=== PATIENT | male | born 1990 | race Caucasian/White ===

== ENCOUNTER 2017-11-09 08:57 | Outpatient (CLI) | payer BC | END 2017-11-09 08:58 | disposition home or self-care (01) | LOC: DTY/OP 08:57 | PROVIDERS: ATTEND Surgery | DX: E66.01 Morbid (severe) obesity due to excess calories (principal) | CPT/HCPCS: 97802 ==

== ENCOUNTER 2019-03-05 12:24 | Outpatient (CLI) | payer BC ==
--- NOTE | 2019-03-06 23:24 | EKG ---
Test Reason : Blood Pressure : / mmHG Vent. Rate : 081 BPM Atrial Rate : 081 BPM P-R Int : 156 ms QRS Dur : 098 ms QT Int : 382 ms P-R-T Axes : 045 -06 016 degrees QTc Int : 443 ms Normal sinus rhythm Minimal voltage criteria for LVH, may be normal variant Borderline ECG No previous ECGs available Confirmed by [place] REMY ([id number]) on 03/06/2019 11:23:57 PM Referred By: JOLIE Confirmed By:hCico REMY
== END 2019-03-05 12:25 | disposition home or self-care (01) ==
LOC: EKG 12:24
PROVIDERS: ATTEND Specialist
DX: E66.01 Morbid (severe) obesity due to excess calories (principal)
CPT/HCPCS: 36415; 82306; 82607; 82728; 82746; 83540; 83970; 84425; 84436; 84480; 85025; 93005; 93010

== ENCOUNTER 2019-03-12 08:22 | Outpatient (CLI) | payer BC | END 2019-03-12 08:23 | disposition home or self-care (01) | LOC: DTY/OP 08:22 | PROVIDERS: ATTEND Specialist | DX: Z01.818 Encounter for other preprocedural examination (principal); E66.01 Morbid (severe) obesity due to excess calories | CPT/HCPCS: 97802 ==

== ENCOUNTER 2019-04-18 11:00 | Inpatient (IN) | payer BC ==
[2019-07-07 11:43] VITALS: BMI 42.1
[2019-07-08] MEDS ORDERED: Ketorolac Tromethamine 30 MG/ML VIAL ONE (06:28)
[2019-07-08] MEDS ORDERED: Scopolamine 1.5 mg/72 hour Patch ONE ×2 (06:28→06:35)
[2019-07-08] MEDS ORDERED: Acetaminophen 500 MG TAB ONE (06:28)
[2019-07-08] MEDS ORDERED: ceFOXitin 2 GM/50 ML Duplex BAG ONE (06:29)
[2019-07-08] MEDS ORDERED: Heparin 5,000 UNITS/ML VIAL ONE (06:29)
[2019-07-08] MEDS ORDERED: Midazolam HCl 2 mg/2 ml Vial ONE (06:34)
[2019-07-08] MEDS ORDERED: Fentanyl 100 MCG/2 ML VIAL ONE (06:34)
[2019-07-08] MEDS ORDERED: Famotidine/PF 20 mg/2ml Vial ONE (06:35)
[2019-07-08] MEDS ORDERED: EPINEPHrine 1 MG/ML AMP ONE (06:42)
[2019-07-08] MEDS ORDERED: Bupivacaine 0.25% HCL 30 ML VIAL ONE ×2 (06:42→06:50)
[2019-07-08] MEDS ORDERED: SUGAMMADEX SODIUM 200 MG/2 ML VIAL ONE (09:05)
[2019-07-08] MEDS ORDERED: HYDROmorphone 2 MG/ML VIAL SLOW IVP PRN (09:23)
[2019-07-08] MEDS ORDERED: Promethazine HCl 25 MG/ML VIAL IM PRN ×2 (09:23→09:25)
[2019-07-08] MEDS ORDERED: Promethazine HCl 25 MG/ML VIAL SLOW IVP PRN (09:23)
[2019-07-08] MEDS ORDERED: Ondansetron HCl/PF 4 MG/2 ML Vial IVP PRN (09:23)
[2019-07-08] MEDS ORDERED: Dextrose 5% in Water 1,000 ML IV PRN (09:25)
[2019-07-08] MEDS ORDERED: Morphine 2 MG/ML SYRINGE SLOW IVP PRN (09:25)
[2019-07-08] MEDS ORDERED: diphenhydrAMINE 50 MG/ML VIAL IVP PRN (09:25)
[2019-07-08] MEDS ORDERED: Hydrocodone-Acetamin 15 ML UDCUP PO PRN (09:25)
[2019-07-08] MEDS ORDERED: Dextrose 50% Abboject 50 ML SYRINGE SLOW IVP PRN (09:25)
[2019-07-08] MEDS ORDERED: Ondansetron PF 4 MG/2 ML Vial IVP PRN (09:25)
[2019-07-08] MEDS ORDERED: hydrALAZINE 20 MG/ML VIAL SLOW IVP PRN (09:25)
[2019-07-08] MEDS ORDERED: Sodium Chloride 0.9% (PF) 10 ML VIAL FS PRN (09:40)
[2019-07-08] MEDS ORDERED: hydrALAZINE 20 MG/ML VIAL ONE (10:08)
[2019-07-08] MEDS ORDERED: D5 1/2 NS w/20 mEq KCL 1,000 ML ONE (10:21)
[2019-07-08] MEDS ORDERED: Labetalol HCl 100 MG/20 ML VIAL ONE ×2 (10:25→13:47)
[2019-07-08] MEDS: D5 1/2 NS w/20 mEq KCL 1,000 ML IV SCH ×2 (11:00→18:46)
[2019-07-08] MEDS: Ketorolac Tromethamine 30 MG/ML VIAL IVP SCH ×2 (12:01→18:46)
[2019-07-08] MEDS: Morphine 4 MG/ML VIAL SLOW IVP PRN ×2 (12:21→16:02)
[2019-07-08] MEDS ORDERED: Lidocaine 1% PF 5 ML VIAL ONE (13:47)
[2019-07-08] MEDS ORDERED: PROPOFOL 200 MG/20 ML VIAL ONE (13:47)
[2019-07-08] MEDS ORDERED: Dexamethasone 20 MG/5 ML VIAL ONE (13:47)
[2019-07-08] MEDS ORDERED: Esmolol 100 MG/10 ML VIAL ONE (13:47)
[2019-07-08] MEDS ORDERED: Ondansetron PF 4 MG/2 ML Vial ONE (13:47)
[2019-07-08] MEDS ORDERED: Rocuronium Bromide 10 MG/ML (10ML VIAL) ONE (13:47)
[2019-07-08] MEDS ORDERED: Glycopyrrolate 0.2 MG/ML 5 ML SYRINGE ONE (13:47)
[2019-07-08] MEDS ORDERED: Succinylcholine Chloride 20 MG/ML 10 ml SYRINGE FS ONE (13:47)
[2019-07-08] MEDS ORDERED: Enoxaparin Sodium 40 MG/0.4 ML SYRINGE SC SCH (21:00)
[2019-07-09] MEDS: Ketorolac Tromethamine 30 MG/ML VIAL IVP SCH ×2 (00:12→05:43)
[2019-07-09] MEDS: D5 1/2 NS w/20 mEq KCL 1,000 ML IV SCH ×2 (00:13→10:20)
[2019-07-09 05:16] LABS: #Eosinphils 0.1 thou/uL (0.0-0.7); #Neutrophils 9.5 thou/uL (1.40-6.50); %Basophils 0.1 % (0.0-1.0); %Eosinophils 0.5 % (0.0-10.0); %Lymphocytes 15.7 % (21.0-51.0); %Monocytes 8.1 % (0.0-10.0); %Neutrophils 75.6 % (42.0-75.0); Hemoglobin 13.1 g/dL (14.0-18.0); Mean Corpuscular HGB CONC 35.5 g/dL (32.0-36.0); Mean Corpuscular Hemoglobin 31.7 pg (27.0-31.0); Mean Corpuscular Volume 89.3 fL (78.0-98.0); Platelet Count 160 thou/uL (130-400); RBC Distribution Width 11.8 % (11.5-14.5); Red Blood Cell (RBC) Count 4.15 mill/uL (4.70-6.10); White Blood Cell (WBC) Count 12.6 thou/uL (4.8-10.8)
[2019-07-09 05:36] LABS: Anion Gap 10 mmol/L (10-20); BUN (Urea Nitrogen) 7 mg/dL (8.9-20.6); Calc. Creatinine Clearance 209 mL/min (70-130); Calcium 8.9 mg/dL (7.8-10.44); Carbon Dioxide 28 mmol/L (22-29); Chloride 108 mmol/L (98-107); Estimated GFR-MDRD Greater than 90; Glucose 122 mg/dL (70-105); Potassium 4.6 mmol/L (3.5-5.1); Sodium 141 mmol/L (136-145)
--- NOTE | 2019-07-09 07:13 | PDOC.GSPN ---
Surgery Progress Note: Subj - Subjective Narrative: Mr. Matamoros is a 29 y/o M who is POD 1 from a laparoscopic sleeve gastrectomy. He did very well over night per himself and his nurse. He walked 8 laps around the floor last night and 5 at 0200 this morning as he reports that he woke up and wanted to walk. He had apple juice and water last night and was able to tolerate those well. He denies N/V. He has not had a BM since surgery. He has voided 3 times without difficulty since removal of his ayala. He reports that his pain is 2/10 this morning. He received Toradol at 0545 this morning. He is receiving D5 1/2 NS with 20 KCl at 125 mL/hr. Surgery Progress Note: Obj - Vital signs Vital signs: Vital Signs - Most Recent Temp Pulse Resp BP Pulse Ox 98.1 F 64 18 146/87 H 98 07/09/19 04:00 07/09/19 04:00 07/09/19 04:00 07/09/19 04:00 07/09/19 04:00 - Physical Exam General: no pain Cardiovascular: regular rate and rhythm, no murmur Respiratory: clear to auscultation, normal respiratory effort Abdomen: soft, nondistended, positive bowel sounds (NABS), appropriately tender Wound: healing well (mild erythema and ecchymosis surrounding the incisions). negative: drainage Surgery Progress Note: Results - Labs Result Diagrams: 07/09/19 05:04 07/09/19 05:04 Surgery Progress Note: A/P - Problem (1) S/P laparoscopic sleeve gastrectomy Current Visit: Yes Code(s): Z98.84 - BARIATRIC SURGERY STATUS Status: Acute Assessment and Plan: Patient is a 29 y/o M who is POD 1 from a laparoscopic sleeve gastrectomy. He is recovering appropriately from his operation, tolerating liquids and walking as expected. His BP was elevated last night, but has decreased this morning. The remainder of his vitals have remained within normal limits. His WBC has increased slightly this morning, likely as a result of inflammation from the surgery. His H/H is stable. He is ready to be discharged home with instructions to continue walking. He will continue his bariatric liquid diet and follow up in clinic in 2 weeks.
[2019-07-09] MEDS ORDERED: Pantoprazole 40 MG VIAL IVP SCH (09:00)
[2019-07-09 11:45] VITALS: BP 146/81; TEMP 97.7
--- NOTE | 2019-07-10 17:56 | OP ---
DATE OF PROCEDURE: 07/08/2019 PREOPERATIVE DIAGNOSIS: Morbid obesity. POSTOPERATIVE DIAGNOSIS: Morbid obesity. PROCEDURE PERFORMED: Laparoscopic vertical sleeve gastrectomy using the ViSiGi device. ANESTHESIA: General endotracheal. STOCK ROLLER: Sue Hicks, medical student. INDICATIONS FOR PROCEDURE: The patient is a 29-year-old white male. He is morbidly obese and has undergone preoperative evaluation and education, presents at this time for sleeve gastrectomy. Of note, his has undergone the same procedure about a year ago. DESCRIPTION OF OPERATION: Informed consent was obtained. The patient was taken to the operating room where general endotracheal anesthesia was obtained with the patient in supine position. Abdomen was prepped with ChloraPrep and draped in sterile fashion. Local anesthetic was infiltrated and 5 mm supraumbilical incision was created through which Veress needle was passed to the peritoneal cavity and pneumoperitoneum established using carbon dioxide up to a pressure of 15 mmHg. A 5 mm trocar port was passed through this same incision. Laparoscopic camera was passed through this port. Under direct vision, 4 additional ports were placed including bilateral 5 mm subcostal ports, a 12 mm right paramedian port and a 15 mm left paramedian port. A 5 mm epigastric incision was created through which Nathansen retractor was passed into the abdominal cavity and used to retract the left lobe of the liver. The patient was placed into reverse Trendelenburg position. The ViSiGi device was advanced within the stomach and used to decompress this. The pylorus was identified and beginning 4 cm proximal to the pylorus, the omentum and vascular tissue along the greater curvature was divided using the LigaSure in an ascending fashion up to the angle of His. All posterior adhesions were mobilized. The short gastric vessels were carefully divided and then hemostasis was maintained using the LigaSure. Once this was completely mobilized, the ViSiGi was carefully positioned at the level of the pylorus and placed to suction, which was clearly defining the lesser curvature of the stomach. The gastrectomy was then performed using a series of fires of the [place] stapler using a green load followed by a gold load and a series of blue loads until completion of the gastrectomy. The ViSiGi along the lesser curvature was used as a size 36 bougie to guide in the gastric division. Care was taken to avoid narrowing the incisura or the gastroesophageal junction. The integrity of the staple line was then assessed by insufflating gas through the ViSiGi while irrigating along the staple line. There was no evidence of an air leak. There was no evidence of bleeding along the staple line. The resected stomach was then removed through the 15 mm port and the fascia was closed with 0 Vicryl suture using a GraNee needle. I then closed the 12 mm port also using the GraNee needle and 0 Vicryl suture. The Nathansen retractor was removed. All ports and instruments were removed under direct vision. All irrigant was aspirated. Pneumoperitoneum was carefully evacuated. 0.25% Marcaine with epinephrine was infiltrated into each port site. Skin edges approximated with 4-0 Monocryl subcuticular suture. Dermabond was placed externally. There were no complications. The patient tolerated the procedure well and was taken to recovery room in stable condition. FINDINGS: The patient had typical intra-abdominal anatomy. He had no evidence of fatty liver after his preoperative diet. The surgery was performed uneventfully with essentially no blood loss. Several hemoclips were placed along the staple line to ensure postoperative hemostasis. The patient tolerated the procedure well and was taken to recovery room in stable condition. Job ID: [id number]
== END 2019-07-09 11:37 | disposition home or self-care (01) | DRG 621 ==
LOC: SURG A 07-08 05:46 → SURG B 07-08 11:22
PROVIDERS: ADMIT Specialist; ATTEND Specialist
PROC: 0DB64Z3 Excision of Stomach, Percutaneous Endoscopic Approach, Vertical (ICD-10-PCS; principal; 2019-07-08)
DX: E66.01 Morbid (severe) obesity due to excess calories (principal); Z68.41 Body mass index [BMI] 40.0-44.9, adult
CPT/HCPCS: 80048; 80053; 83036; 85025; 88307; 88312; 94760; C9113; J0171; J0360; J0694; J1100; J1644; J1650; J1885; J2001; J2250; J2270; J2405; J2704; J3010; S0020; S0028

== ENCOUNTER 2019-07-07 07:54 | Outpatient (CLI) | payer BC ==
[2019-07-07 12:42] LABS: #Basophils 0.1 thou/uL (0.0-0.2); #Eosinphils 0.1 thou/uL (0.0-0.7); #Lymphocytes 2.7 thou/uL (1.20-3.40); #Monocytes 0.7 thou/uL (0.11-0.59); #Neutrophils 4.5 thou/uL (1.40-6.50); %Basophils 0.8 % (0.0-1.0); %Eosinophils 1.1 % (0.0-10.0); %Lymphocytes 33.4 % (21.0-51.0); %Monocytes 8.7 % (0.0-10.0); Hemoglobin 14.8 g/dL (14.0-18.0); Mean Corpuscular HGB CONC 33.9 g/dL (32.0-36.0); Mean Corpuscular Hemoglobin 29.9 pg (27.0-31.0); Mean Corpuscular Volume 88.3 fL (78.0-98.0); Mean Platelet Volume 8.9 fL (7.4-10.4); Platelet Count 178 thou/uL (130-400); RBC Distribution Width 11.7 % (11.5-14.5); Red Blood Cell (RBC) Count 4.96 mill/uL (4.70-6.10)
[2019-07-07 12:48] LABS: Hemoglobin A1c 5.3 % (4.0-6.0)
[2019-07-07 13:04] LABS: ALT (SGPT) 59 U/L (8-55); AST (SGOT) 30 U/L (5-34); Albumin 4.5 g/dL (3.5-5.0); Alkaline Phosphatase 59 U/L (40-110); Anion Gap 11 mmol/L (10-20); BUN (Urea Nitrogen) 15 mg/dL (8.9-20.6); Bilirubin, Total 0.6 mg/dL (0.2-1.2); Calc. Creatinine Clearance 0 mL/min (70-130); Calcium 9.3 mg/dL (7.8-10.44); Carbon Dioxide 26 mmol/L (22-29); Chloride 105 mmol/L (98-107); Estimated GFR-MDRD Greater than 90; Globulin 2.5 g/dL (2.4-3.5); Glucose 90 mg/dL (70-105); Potassium 4.1 mmol/L (3.5-5.1); Sodium 138 mmol/L (136-145)
== END 2019-07-07 07:55 | disposition home or self-care (01) ==
LOC: LABBT 07:54
PROVIDERS: ATTEND Specialist
DX: Z01.812 Encounter for preprocedural laboratory examination (principal); E66.01 Morbid (severe) obesity due to excess calories
CPT/HCPCS: 80053; 83036; 85025